=== PATIENT | female | born 1975 | race Caucasian/White ===

== ENCOUNTER → 2020-05-05 | Outpatient (CLI) | payer OTHER ==
[~2020-05-05] MED LIST: OMEP40CA45 PO
== END ==
LOC: LAB 14:54
PROVIDERS: ATTEND Internal Medicine Gastroenterology
DX: Z01.812 Encounter for preprocedural laboratory examination (principal); K21.9 Gastro-esophageal reflux disease without esophagitis; R13.10 Dysphagia, unspecified; Z20.828 Contact with and (suspected) exposure to other viral communicable diseases
CPT/HCPCS: U0003

== ENCOUNTER → 2020-05-08 | Day surgery (SDC) | payer OTHER ==
[~2020-05-08] MED LIST changes: +IV RINGERS,LACTATED 1000ML 1,000 ML IV ONE; +LIDOCAINE 2% PF 5 ML VIAL. ONE; +PROPOFOL 10 MG/ML (20ML) VIAL. IV ONE
[2020-05-08 10:41] VITALS: BP 112/70
--- NOTE | 2020-05-11 15:08 | PATHOLOGY ---
[facility] Accession Number: [id number] . 01 Material submitted: . PART A: cecum - CECUM POLYP PART B: colon - RANDOM COLON BIOPSY . 01 Clinical history: . DYSPHAGIA, BLOATING, [facility] . 02 Diagnosis: A. Colonic mucosa, cecal polyp biopsies: - Tubular adenoma. . B. Colonic mucosa, random colon biopsies: - No significant pathologic abnormalities. . (JPM:irma; 05/11/2020) R 05/11/2020 1227 Local . 02 Comment: Sections of the cecal biopsy reveal multiple segments of tubular adenoma. There is no high-grade dysplasia or evidence of malignancy. . Sections of the random colon biopsy reveal multiple segments of colonic mucosa containing multiple small mucosal-associated lymphoid aggregates. There is no evidence of a chronic destructive colitis, lymphocytic colitis, or collagenous colitis. . (VIKM:irma; 05/11/2020) . 02 Electronically signed: . Damon Guadalupe MD, Pathologist NPI- [id number] . 01 Gross description: . A. Received in formalin labeled "Acosta, Tatian[place], cecal polyp BX" are multiple amador-brown soft tissue fragments measuring in aggregate 2.3 x 1.0 x 0.2 cm. The specimen is submitted entirely in A1. . B. Received in formalin labeled "Acosta, [place], random colon BX" are multiple amador-brown soft tissue fragments measuring in aggregate 1.8 x 0.6 x 0.1 cm. The specimen is submitted entirely in B1. [place] [place] [facility] 05/09/2020 1049 Local . 02 Pathologist provided ICD-10: D12.0, R13.10, R14.0 . 02 CPT . 506588, [id number] Specimen Comment: A courtesy copy of this report has been sent to [phone], [phone] Specimen Comment: [id number] Specimen Comment: Report sent to / DR MEJIA Performed at: 01 [facility] [address] [id number] MD Dash Lees MD Phone: [phone] Performed at: 02 [facility] [address] [place], [place] [id number] MD Damon Guadalupe MD Phone: [phone]
== END | disposition home or self-care (01) ==
LOC: ENDOS 08:38 → EDUNIT# 09:30
PROVIDERS: ATTEND Internal Medicine Gastroenterology
DX: R19.4 Change in bowel habit (principal); R13.10 Dysphagia, unspecified; R14.0 Abdominal distension (gaseous); D12.0 Benign neoplasm of cecum; K63.89 Other specified diseases of intestine; K21.9 Gastro-esophageal reflux disease without esophagitis; F41.9 Anxiety disorder, unspecified; Z90.49 Acquired absence of other specified parts of digestive tract; Z98.890 Other specified postprocedural states; Z79.899 Other long term (current) drug therapy; Z88.8 Allergy status to other drugs, medicaments and biological substances; Z72.89 Other problems related to lifestyle
CPT/HCPCS: 43450; 45380; 45385; 81025; 88305; J2704